=== PATIENT | female | born 1940 | race Hispanic/Latino ===

== ENCOUNTER 2019-06-20 14:21 | Outpatient (CLI) | payer MEDICARE ==
--- NOTE | 2019-06-21 15:01 | Mammography Report ---
BONE DEXA CLINICAL: Postmenopausal. COMPARISON: 11/03/2012 TECHNIQUE: 3 site bone DEXA performed on an Hologic scanner. FINDINGS: The average BMD of the lumbar spine L1-L4 is 0.700g/cm squared with a T score of -3.2 and a Z score o f -0.6. This compares to 0.704g/cm squared on the last exam and represents a -0.6 % change from the [ previous baseline]. The average BMD of the left hip is 0.708 g/cm squared with a T score of -1.9and a Z score of 0. This compares to 0.748 g/cm squared on the last exam and represents a -5.4 % change from the [previous bas manohar]. The left femoral neck BMD is 0.566 g/cm squared with a T score of -2.5 and a Z score of -0.3. IMPRESSION: 1. WHO classification: Osteoporosis with high fracture risk based on spine and left femoral neck sylwia urements. 2. WHO classification Osteopenia with increased fracture risk based on left hip total measurements. 3. A modest decline in spine BMD and a more moderate decline in left hip BMD compared to the previous exam. RECOMMENDATION: Clinical correlation and routine screening. Definitions: BMD equal bone mineral density T score = BMD related to peak bone mass of young adult ([place] expressed an standard deviation) Z score = age-matched BMD expressed in SD World health organization (WHO) diagnostic criteria Normal T score greater than equal to 1 standard deviation Osteopenia T score between -1 and -2.4 standard deviation Osteoporosis T score -2.5 standard deviation or below. Note: BMD is not the only risk factor for fracture; also consider factors such as the patient's age, risk of falling, previous osteoporotic fracture, family history of osteoporotic fractures, current sm oker and low body weight. Z scores are not calculated if greater than 80 years of age. Signer Name: Gigi Ramirez MD Signed: 06/21/2019 2:56 PM Workstation Name: [id number]
== END 2019-06-20 14:22 | disposition home or self-care (01) ==
LOC: MAMMO 14:21
PROVIDERS: ATTEND Family Medicine
DX: M81.0 Age-related osteoporosis without current pathological fracture (principal)
CPT/HCPCS: 77080

== ENCOUNTER 2020-12-11 10:14 | Outpatient (CLI) | payer MEDICARE ==
--- NOTE | 2020-12-11 12:30 | Mammography Report ---
BILATERAL DIGITAL SCREENING MAMMOGRAM WITH CAD HISTORY: Screening mammogram. TECHNIQUE: Routine digital mammographic imaging performed. This examination was interpreted with an herrera benefit of Computer-aided Detection analysis. COMPARISON: 12/07/2019, 12/24/2018, 12/06/2018, 12/04/2017, 12/04/2016. FINDINGS: Breast Density: scattered fibroglandular appearance of the breast tissue. Digital CC and MLO views demonstrate no mammographic evidence of malignancy. Scattered benign-appear ing coarse calcifications bilaterally with right lower inner breast biopsy marker. IMPRESSION: No mammographic evidence of malignancy. If the clinical examination remains stable, recommend bilate ral mammogram in approximately one year. BIRADS 2: Benign Finding(s). FURTHER INFORMATION: According to the [employer], yearly mammograms are recommend ed starting at age 40 and continuing as long as a woman is in good health. Clinical Breast Exams shou ld be part of a periodic health exam-about every 3 years for women in their 20s and 30s and every yea r for women 40 and over. Breast self exam is an option for women starting in their 20s. Any breast ch arlen noted on a breast self exam should be reported promptly to the patient's healthcare provider. Br east MRI is recommended for women with an approximately 20-25% or greater lifetime risk of breast can cer, including women with a strong family history of breast or ovarian cancer and women who have been treated for Hodgkin's disease. A negative Mammography report should not discourage follow up or biopsy of a clinically significant f inding and/or abnormality. Dense breast tissue may obscure small neoplasms. The patient will be entered into a reminder system with a target due date for the next screening mamm ogram. Signer Name: Elton Angeles MD Signed: 12/11/2020 12:26 PM Workstation Name: [id number]
== END 2020-12-11 10:15 | disposition home or self-care (01) ==
LOC: SPVWC 10:14
PROVIDERS: ATTEND Surgery
DX: Z12.31 Encounter for screening mammogram for malignant neoplasm of breast (principal); N64.89 Other specified disorders of breast
CPT/HCPCS: 77067

== ENCOUNTER 2021-07-11 09:31 | Outpatient (CLI) | payer MEDICARE ==
--- NOTE | 2021-07-11 13:05 | Mammography Report ---
DEXA BONE DENSITY SCAN INDICATION / CLINICAL INFORMATION: OSTEOPOROSIS. 81 years Female COMPARISON: 06/20/2019 LUMBAR SPINE, L1-L4: - Bone mineral density (BMD) = 0.748 g/cm2. - T-score = -2.7 - Z-score = 0.0 Change (%) since most recent prior (if available): 6.8 LEFT HIP, NECK : - Bone mineral density (BMD) = 0.562 g/cm2. - T-score = -2.6 - Z-score = -0.3 Change (%) since most recent prior (if available): -1.3 IMPRESSION: 1. WHO Classification: Osteoporosis. Fracture Risk: High. 2. 10-Year Fracture Risk (FRAX) = Major Osteoporotic Not reported.% / Hip: Not reported.% FRAX generally not reported for patients with normal or osteoporotic BMD, in plm-iaabkym-mkopaym elaine ents younger than age 50, or in patients undergoing pharmacotherapy BMD Reporting Guidelines (ISCD, 2015) BMD Reporting in Postmenopausal Women and in Men Age 50 and Older - T-scores are preferred. - The WHO densitometric classification is applicable. BMD Reporting in Females Prior to Menopause and in Males Younger Than Age 50 - Z-scores, not T-scores, are preferred. This is particularly important in children. - A Z-score of -2.0 or lower is defined as below the expected range for age, and a Z-score above -2.0 is within the expected range for age. - Osteoporosis cannot be diagnosed in men under age 50 on the basis of BMD alone. - The WHO diagnostic criteria may be applied to women in the menopausal transition. http://www.iscd.org/official-positions/6662-rgct-btewzqdq-positions-adult/ Signer Name: Chapin Love DO Signed: 07/11/2021 1:01 PM Workstation Name: [id number]
== END 2021-07-11 09:32 | disposition home or self-care (01) ==
LOC: MAMMO 09:31
PROVIDERS: ATTEND Family Medicine
DX: M81.0 Age-related osteoporosis without current pathological fracture (principal)
CPT/HCPCS: 77080